=== PATIENT | female | born 1955 | race Caucasian/White ===

== ENCOUNTER 2018-04-08 10:05 | Emergency (ER) | payer OTHER ==
[~2018-04-08] VITALS: Ht 154.9 cm; Wt 70.3 kg
[2018-04-08] MEDS ORDERED: IRBESARTAN300 MG PO (10:30)
[2018-04-08] MEDS ORDERED: PROPANOLOL PO (10:30)
[2018-04-08] MEDS ORDERED: BONIVA150 MG PO (10:30)
[2018-04-08] MEDS ORDERED: LIPITOR20 MG PO (10:30)
[2018-04-08] MEDS ORDERED: BACTRIM DS TAB1 EACH PO (13:36)
[2018-04-08] MEDS ORDERED: URIN D.S. TABL1 EACH PO (13:36)
== END 2018-04-08 14:06 | disposition home or self-care (01) ==
LOC: ER 10:05
DX: N39.0 Urinary tract infection, site not specified (principal)